=== PATIENT | female | born 1945 | race Caucasian/White ===

== ENCOUNTER → 2016-12-23 | Outpatient (CLI) | payer BC ==
[~2016-12-23] MED LIST: EVS60 PO; FSM70 PO
--- NOTE | 2016-12-23 15:33 | MAMMOGRAPHY REPORT ---
BILATERAL DIGITAL SCREENING MAMMOGRAM WITH CAD: 12/23/2016 CLINICAL HISTORY: Routine screening. Patient has no complaints. TECHNIQUE: Bilateral CC and MLO views were obtained. Current study was also evaluated with a Comput er Aided Detection (CAD) system. COMPARISON: Comparison is made to exams dated: 08/16/2015 mammogram, 07/12/2013 mammogram, 4 mammogram, 07/11/2012 mammogram, 07/08/2011 mammogram, and 12/20/2009 mammogram - [facility]. BREAST COMPOSITION: The tissue of both breasts is heterogeneously dense, which may obscure small ma sses. FINDINGS: There is possible architectural distortion in the lateral posterior left breast, best see n on the cc view, for which additional spot compression tomosynthesis views and possibly ultrasound are recommended. A 9.6 mm nodular asymmetry is seen in the superior middle one third of the right b reast on the MLO view, which could represent normal overlapping tissue. However, further evaluation with spot compression tomosynthesis views and possibly ultrasound are recommended. No other suspicious mass, architectural distortion or cluster of microcalcifications is seen. IMPRESSION: ACR BI-RADS CATEGORY 0: INCOMPLETE EVALUATION: NEED ADDITIONAL IMAGING EVALUATION The possible architectural distortion in the lateral left breast and 9.6 mm nodular asymmetry in the superior right breast need additional imaging evaluation. The patient will be called to schedule an appointment. Approximately 10% of breast cancers are not detected with mammography. A negative mammographic repor t should not delay biopsy if a clinically suggestive mass is present. Erna Lovett M.D. ay/:12/23/2016 14:40:46 Automotive Accessory Installer: So ALAS(Shahla)(M), [facility] letter sent: Addl Imaging 0 BI-RADS Code: ACR BI-RADS Category 0: Incomplete Evaluation: Need Additional Imaging Evaluation
== END | disposition home or self-care (01) ==
LOC: C.MAMM 13:20
PROVIDERS: ATTEND Obstetrics & Gynecology
DX: Z12.31 Encounter for screening mammogram for malignant neoplasm of breast (principal); N64.9 Disorder of breast, unspecified

== ENCOUNTER → 2017-01-04 | Outpatient (CLI) | payer BC ==
--- NOTE | 2017-01-04 15:12 | Discharge Instructions ---
Discharge Instructions Procedure Procedure Date: Jan 04, 2017. Reason for visit: Left Distortion/Right Asymmetry. Discharge Discharge Date: Jan 04, 2017. Discharge Diagnosis: post left breast ultrasound guided core biopsy Instructions Activity Recommendations: Additional Limitations (see below) Return to School/Work: no limitations Recommended Home Diet: No Limitations Provider Instructions: ACTIVITY RECOMMENDATIONS: * No lifting, pushing, pulling or exercising the affected side for three days. RETURN TO SCHOOL/WORK: * You may return to work/school after the procedure, but do not perform any strenuous activities for 24 to 48 hours. MEDICATIONS: * Tylenol (two 325 mg) every four to six hours if needed for mild pain (if not allergic to Tylenol). DIET: * Resume previous diet. SPECIAL CARE INSTRUCTIONS: * Keep biopsy site dry for 24 hours. May shower after 24 hours, but do not soak (bathe) incision. * May remove Tegaderm (plastic patch) tomorrow AFTER showering. * Leave the steri-strips on for one week. Allow the steri-strips to fall off by themselves. If not off after one week, you may remove them. You may place a Bandaid crosswise over the strips, if desired. * Apply ice 10 minutes on and 10 minutes off as needed. * Wear a bra at bedtime to sleep more comfortably for 2-3 days. * Your referring physician should have the results after approximately 5 to 7 business days. * Call for unusual bleeding, fever, drainage, etc or if you have any questions call [phone] during normal business hours or after hours call Dr Lovett, . FOLLOW UP VISIT: Follow-up with Referring Physician as scheduled. Allergies Coded Allergies: No Known Allergies (Unverified Allergy, Mild, OTHER, 05/10/09) Rosy Godwin Recommendations: Call your doctor if: * Temperature above 101 degrees * Pain not relieved by pain medicine ordered * There is increased drainage or redness from any incision * You have any unanswered questions or concerns. Your Doctors Instructions noted above were prepared by provider Erna Lovett. Patient Signature Section: Patient Instructions Signature Page Mariella Watson Patient (or Guardian) Signature/Date: I have read and understand the instructions given to me by my caregivers. Caregiver/RN/Doctor Signature/Date: The above-named patient and/or guardian has received patient instructions on this date. + Original Patient Signature Page (only) stays with chart. Please make copy for patient.
--- NOTE | 2017-01-05 08:01 | MAMMOGRAPHY REPORT ---
THIS REPORT HAS BEEN AMENDED. ULTRASOUND GUIDED BIOPSY LEFT BREAST: 01/04/2017 CLINICAL HISTORY: Ill-defined hypoechoic shadowing lesion in the 1:00 left breast, possibly correlat ing with architectural distortion seen on the screening mammogram of the left breast. Patient prese nts for ultrasound-guided core needle biopsy. COMPARISON: Comparison is made to exams dated: 12/23/2016 mammogram, 08/15/2014 mammogram, 07/12/2013 mammogram, 07/11/2012 mammogram, 07/08/2011 mammogram, and 12/20/2009 mammogram - [facility]. PATIENT CONSENT: The procedure, risks and benefits were discussed with the patient and informed writ ten consent was obtained. Specific risks to this procedure include: bleeding, infection, puncture of adjacent structure, nontarget biopsy, sampling error and medication reaction. PROCEDURE DESCRIPTION: A time out was performed and the left breast was agreed as the site of biopsy . The skin was prepped and draped in the usual sterile fashion. The ill-defined hypoechoic shadowing lesion in the 1:00 left breast was identified and targeted for biopsy. Subcutaneous and intraparenc hymal 1% buffered lidocaine, with and without epinephrine, was administered as local anesthesia. A s kin incision was made. Through the incision, 3 samples were obtained through the dominant hypoechoi c shadowing lesion and a fourth sample was obtained from the small adjacent 3-4 mm hypoechoic area w ith a 14 gauge Achieve biopsy device. A metallic marker was placed at the biopsy site. Hemostasis wa s achieved after manual compression. The patient tolerated the procedure well and there was no immed iate complication. The samples were sent to the pathology department in an appropriately labeled co ntainer. Postprocedure left LM and XCCL tomosynthesis images were obtained. A new ribbon-shaped metallic bio psy marker is identified in the 1:00 posterior left breast, at the site of the biopsied ill-defined hypoechoic lesion seen on ultrasound. This marker clip is posterior lateral by 2 cm from the expect ed geometric center of the architecture distortion based on the 12/23/2016 mammogram. However no ot her suspicious abnormality was identified on ultrasound. Therefore, await pathology results before a ny further recommendations will be made as to follow-up. IMPRESSION: ULTRASOUND GUIDED BIOPSY Status post ultrasound-guided core needle biopsy of an ill-defined hypoechoic lesion in the 1:00 lef t breast, with biopsy marker placed at the site. Await pathology results before any further recommendations are made regarding the questionable archi tectural distortion in the lateral left breast. The patient will receive notification of the biopsy results from her referring physician. Erna Lovett M.D. ay/:01/04/2017 15:57:34 Desizing Machine Operator: Gaby GARCIA)(Johan), [facility] AMENDMENT: 01/07/2017 Erna Lovett M.D. Pathology results from the ultrasound-guided core needle biopsy of an ill-defined hypoechoic lesion in the 1:00 left breast yielded benign breast tissue with microcalcifications. Negative for in situ and invasive carcinoma. The pathology results are concordant with the imaging appearance. However , on the postprocedure mammograms the biopsy marker clip is located lateral and posterior to the exp ected geometric center of the suggested distortion seen on the 12/21/2016 mammogram. It is unclear if this is a real finding considering the diagnostic mammograms performed on 01/04/2017 did not yemi w the distortion to persist. Nevertheless, further evaluation with a contrast-enhanced breast MRI i s recommended to exclude the possibility of any non-mass enhancement or enhancing mass in the left l ateral breast. These new recommendations were discussed with the patient at 9:40 AM on 01/07/2017. There are also discussed with the [employer] nurse at 9:50 AM.
--- NOTE | 2017-01-05 08:03 | MAMMOGRAPHY REPORT ---
BILATERAL DIGITAL DIAGNOSTIC MAMMOGRAM TOMOSYNTHESIS AND TARGETED BILATERAL ULTRASOUND: 01/04/2017 CLINICAL HISTORY: 71-year-old woman called back from screening mammography for a 9.6 mm asymmetry in the superior right breast, and possible architectural distortion in the lateral left breast, best s een on the CC view. TECHNIQUE: Spot compression today digital and tomosynthesis left CC, left MLO and right MLO views we re obtained. COMPARISON: Comparison is made to exams dated: 12/23/2016 mammogram, 08/16/2015 mammogram, 4 mammogram, 07/12/2013 mammogram, 07/11/2012 mammogram, and 07/08/2011 mammogram - [facility]. BREAST COMPOSITION: The tissue of both breasts is heterogeneously dense, which may obscure small ma sses. FINDINGS: On the spot compression right MLO view including tomosynthesis images, the 9 mm nodular a symmetry is less prominent. No definite persistent mass, or could actually distortion or suspicious microcalcification. Further evaluation with ultrasound was performed in the superior right breast. There is partial effacement of the questionable architectural distortion in the lateral left breast on both the spot compression CC and MLO views including tomosynthesis images. However given the [place] picious appearance of the finding on the screening mammogram, additional evaluation with ultrasound was performed. Real-time high-resolution sonographic evaluation was performed in the superior right breast and late ral left breast. Throughout the right breast, no suspicious solid or cystic mass was identified. I n the left 1:00 breast, 7 cm from the nipple, there is ill-defined hypoechoic area measuring 8.3 x 3 .9 x 10.7 mm, with a small adjacent hypoechoic area measuring approximately 3 mm. It is unclear if this ill-defined lesion could be causing the architectural distortion but given the solid indetermin ate nature, definitive characterization with tissue sampling is recommended. Additional sonographic evaluation performed in the left axilla demonstrates several morphologically normal lymph nodes, wi thout evidence of thickened cortices or suspicious adenopathy. IMPRESSION: ACR BI-RADS CATEGORY 4B: INTERMEDIATE SUSPICION FOR MALIGNANCY, TARGETED ULTRASOUND ACR BI-RADS CATEGORY 4B: INTERMEDIATE SUSPICION FOR MALIGNANCY 1. Ultrasound guided core needle biopsy is recommended for an ill-defined hypoechoic lesion in the 1:00 left breast, 7 cm from the nipple, which may be the cause of the architectural distortion seen mammographically. 2. No suspicious lymphadenopathy identified in the left axilla on ultrasound. 3. Effacement of the right superior asymmetry, and no suspicious sonographic correlate identified. This most likely represented normal overlapping fibroglandular tissue. These results and recommendations were discussed with the patient at the time of the exam. The left breast biopsy was performed during the same appointment and please refer to a separate report for f ull detail. Approximately 10% of breast cancers are not detected with mammography. A negative mammographic repor t should not delay biopsy if a clinically suggestive mass is present. Erna Lovett M.D. ay/:01/04/2017 15:20:40 Nurse Informatics Educator: Gaby ALAS(R)(M), [facility] letter sent: Abnormal 4/5 BI-RADS Code: ACR BI-RADS Category 4B: Intermediate Suspicion For Malignancy Ultrasound BI-RADS: AC R BI-RADS Category 4B: Intermediate Suspicion For Malignancy
== END | disposition home or self-care (01) ==
LOC: C.MAMM 13:52
PROVIDERS: ATTEND Obstetrics & Gynecology
DX: N63 Unspecified lump in breast (principal); N64.89 Other specified disorders of breast

== ENCOUNTER → 2017-01-27 | Outpatient (CLI) | payer BC ==
[2017-01-27 13:48] LABS: CREATININE 0.72 mg/dl (0.60-1.20)
== END | disposition home or self-care (01) ==
LOC: C.LAB1850 11:33
PROVIDERS: ATTEND Obstetrics & Gynecology
DX: R92.8 Other abnormal and inconclusive findings on diagnostic imaging of breast (principal)

== ENCOUNTER → 2017-02-24 | Outpatient (CLI) | payer BC ==
[~2017-02-24] MED LIST changes: +GADAVIST IV PRN
--- NOTE | 2017-02-25 15:08 | MAMMOGRAPHY REPORT ---
BREAST MRI OF BOTH BREASTS : 02/24/2017 CLINICAL HISTORY: 71-year-old woman found to have a questionable area of architectural distortion in the lateral posterior left breast on the 12/23/2016 screening mammogram. Additional diagnostic spo t compression left CC Juilo Cesar of the cysts images obtained in the lateral posterior breast did not de finitely demonstrate persistent distortion. However, an ill-defined hypoechoic area was identified in the 1:00 left breast on ultrasound, thought to correlate with the mammographic finding. This was possibly biopsied and yielded benign pathology. However, the biopsy marker clip was located slight ly lateral and posterior to the expected geometric center of the possible distortion based on the or iginal CC view and an MRI was recommended to exclude the possibility of a suspicious enhancing mass anterior to the biopsy marker clip. COMPARISON: Comparison is made to exams dated: 01/04/2017 mammogram, 01/04/2017 ultrasound, 12/23/2016 m ammogram, 08/16/2015 mammogram, 08/15/2014 mammogram, and 07/12/2013 mammogram - [facility]. Technique: Using a 1.5 Eulalia magnet and dedicated breast coil, multisequence axial images were obtai hermilo through the breasts. After uneventful IV administration of 6 mL of Gadavist, dynamic multiphase contrast-enhanced axial images, and sagittal postcontrast were obtained. Temporal subtraction axia l images and 3-D MIP images are provided. Everything was then reviewed on a 3-D workstation, [employer]. FINDINGS: Right breast: There is no significant background parenchymal enhancement. There is no suspicious en hancing mass, non-mass enhancement, architectural distortion or suspicious kinetics. No focal skin thickening or nipple retraction. No suspicious right axillary lymphadenopathy. Left breast: There is no significant background parenchymal enhancement. There is susceptibility ar tifact from a biopsy marker clip in the far posterior 1:00 left breast. Surrounding and extending s lightly medial and anterior to the marker clip by 7 mm is minimal enhancement, with associated persi stent and foci of plateau kinetics. This area is T2 isointense. These findings most likely represe nt post biopsy change. The mild enhancement is not thought to correlate with the expected distortio n, nor is architectural distortion appreciated on the current axial T1 nonfat saturated images. The refore, the questionable distortion was likely artifactual. No other suspicious enhancing mass, non -mass enhancement or suspicious kinetics are identified in the left breast. There is no focal skin thickening or nipple retraction. No left axillary lymphadenopathy. Other: Although field of view for this exam is not optimized to visualize the thoracic cavity, a por tion of the spleen and possibly bowel are visualized abutting the heart in the left lower thoracic c avity, which could indicate a diaphragmatic hernia. Correlation with chest radiography is recommend ed. IMPRESSION: ACR-BI-RADS CATEGORY 3: PROBABLY BENIGN 1. There is susceptibility artifact from a metallic biopsy marker in the 1:00 far posterior left br east, near the pectoralis muscle denoting the site of recent benign biopsy. There is mild 7 mm of e nhancement medial and slightly anterior to the biopsy marker clip, which most likely represents post biopsy change. There is no MRI evidence of architectural distortion nor is there a suspicious spicu lated enhancing mass 2 cm anterior to the biopsy marker clip to suggest the mammographic distortion was a true finding. Therefore, recommend follow-up left diagnostic mammograms with tomosynthesis im ages and possible ultrasound to ensure stability in 6 months. 2. Overall, there is no evidence of a suspicious enhancing mass, suspicious non-mass enhancement or suspicious kinetics in the left breast. 3. No MRI evidence of malignancy within the right breast. 4. Visualization of the spleen and possibly some bowel abutting the heart in the left lower thoraci c cavity which could indicate a diaphragmatic hernia. Correlation with chest radiography is recomme nded. The patient will receive written notification of the results. Erna Lovett M.D. ay/:02/25/2017 11:10:03 Exhibit Technician: channel process plant operator, [facility] letter sent: Follow Up Recommended 3 BI-RADS Code: ACR-BI-RADS Category 3: Probably Benign
== END | disposition home or self-care (01) ==
LOC: C.MRI 11:16
PROVIDERS: ATTEND Obstetrics & Gynecology
DX: R92.8 Other abnormal and inconclusive findings on diagnostic imaging of breast (principal)

== ENCOUNTER → 2017-08-30 | Outpatient (CLI) | payer BC ==
[~2017-08-30] MED LIST changes: -GADAVIST IV PRN
--- NOTE | 2017-08-31 08:38 | MAMMOGRAPHY REPORT ---
UNILATERAL LEFT DIGITAL DIAGNOSTIC MAMMOGRAM TOMOSYNTHESIS WITH CAD: 08/30/2017 CLINICAL HISTORY: 71-year-old woman presents for follow-up in the left breast, for a possible area of architectural distortion in the lateral breast best identified on the CC view performed 12/23/2016. Biopsy results were benign and MRI failed to reveal any suspicious enhancing mass in this area. TECHNIQUE: Left breast tomosynthesis in addition to standard 2D mammography was performed. Exaggera robin lateral left CC tomosynthesis images were also obtained. Current study was also evaluated with a Computer Aided Detection (CAD) system. COMPARISON: Comparison is made to exams dated: 02/24/2017 breast MRI, 01/04/2017 ultrasound biopsy, 01/04 ultrasound, 01/04/2017 mammogram, 12/23/2016 mammogram, and 08/16/2015 mammogram - [facility]. BREAST COMPOSITION: There are scattered areas of fibroglandular density in the left breast. FINDINGS: A stable ribbon-shaped biopsy marker clip is identified in the upper outer far posterior le ft breast, seen on the MLO and exaggerated lateral CC views. There is no current evidence of archite ctural distortion on the 2-D or tomosynthesis images in the left breast. No new suspicious mass, asy mmetry or suspicious calcifications. Recommend return to annual screening mammography schedule. IMPRESSION: ACR BI-RADS CATEGORY 2: BENIGN Stable postbiopsy changes in the left upper outer quadrant, without persistent architectural distorti on or mammographic evidence of malignancy. Recommend return to annual screening mammography schedule , due in December 2017. These results and recommendations were discussed with the patient at the denita e of the exam. Approximately 10% of breast cancers are not detected with mammography. A negative mammographic report should not delay biopsy if a clinically suggestive mass is present. Erna Lovett M.D. ay/:08/30/2017 14:39:38 Certified Emergency Vehicle Technician: So ALAS(Shahla)(Johan), [facility] letter sent: Normal 1/2 BI-RADS Code: ACR BI-RADS Category 2: Benign
== END | disposition home or self-care (01) ==
LOC: C.MAMM 13:48
PROVIDERS: ATTEND Obstetrics & Gynecology
DX: R92.8 Other abnormal and inconclusive findings on diagnostic imaging of breast (principal)